=== PATIENT | female | born 1985 | race Caucasian/White ===

== ENCOUNTER 2016-07-09 18:09 | Emergency (ER) | payer MEDICARE, MEDICAID ==
[~2016-07-09] VITALS: Ht 165.1 cm; Wt 96.8 kg
[~2016-07-09 18:09] MED LIST: CLOMID; METFORMIN PO; NEOM10DR11 RIGHT_EAR; SYNTHROID
[2016-07-09 18:25] VITALS: BP 134/78; PULSE 81; RESP 16; O2SAT 97
[2016-07-09 19:05] LABS: BASOPHILS % (AUTO) 0.1 % (0-3); EOSINOPHILS % (AUTO) 0.7 % (0-5); MONOCYTES % (AUTO) 5.3 % (4-12); Mean Corpuscular Hemoglobin 27.7 pg (27.0-35.0); NEUTROPHILS % (AUTO) 77.9 % (40-74); Platelet Count 248 bil/L (150-400)
[2016-07-09 19:25] LABS: Magnesium 1.7 mg/dL (1.6-2.6)
--- NOTE | 2016-07-09 21:01 | ED.REPORT ---
HPI-Abd Pain F Under 40 Date of Service Jul 09, 2016 ED Provider: Dr. Maher 31 y/o female with a hx of diabetes mellitus and polycystic ovarian syndrome presents to the ED complaining of sudden RLQ abdominal pain, onset 6 hours ago while she was eating. Her pain started diffuse, localizing to her RLQ. She reports the pain was sudden and rates it 5/10 in severity. Pt denies nausea, vomiting, fever, chills, dysuria, abnormal vaginal discharge or change in appetite. Pt has a yeast infection a couple of weeks ago, now resolved. She is not currently . Nursing Notes Stated Complaint: ABDOMINAL PAIN Chief Complaint: Female Abdominal Pain Nursing Notes Reviewed: Yes Allergies: Coded Allergies: Penicillins (Verified Allergy, Unknown, 07/09/16) Scheduled Neomy Sulf/Colist Sul/Hc/Thonz (Cortisporin-Tc Ear Susp) 10 Ml Drops.susp 5 GTTS RIGHT_EAR QID Scheduled PRN Hydrocodone-Acetaminophen 5-325 mg (Hydrocodone-Acetaminophen 5-325 mg) 1 Each Tablet 1 TABLET PO Q6H PRN PRN For Pain Miscellaneous Medications ([Synthroid]) ([Metformin ]) PO ([Clomid]) General Time Seen by MD: 21:00 Chief Complaint Abdominal pain Hx Obtained From: Patient Arrived By: Walk-in Sudden in Onset?: Yes Onset Occurred: 5 - 8 hours ago Symptom Duration: Since onset Progression since Onset: Constant Location: : RLQ Quality: Painful Severity: Current: Moderate Severity: Maximum: Moderate Recent Healthcare: No recent doctor visit Similar Sx Previous: No Past Medical History Past Medical History Diabetes Mellitus Polycystic ovarian syndrome Past Surgical History Back surgery Smoking History Never Smoker Social History Alcohol Use: Denies alcohol use Drug Use: Denies drug use Other Social History: Good social support, Local resident Ambulatory Status Independent Review of Systems No change in appetite. Constitutional: Denies: Chills, Fever GI: Reports: Abdominal pain, Denies: Nausea, Vomiting Female: Denies: Dysuria, , Vaginal discharge Complete sys rev & neg: except as marked. Physical Exam Initial Vital Signs Vital Signs (First) Date Time Temp Pulse Resp B/P Pulse Ox O2 Delivery O2 Flow Rate FiO2 07/09/16 18:25 36.6 81 16 134/78 97 Room Air Initial VS: Reviewed, Vital signs normal Head / Eyes: Atraumatic, Normocephalic, PERRL ENT: Mucous membranes moist, Conjunctiva normal, No scleral icterus Neck: Supple, Non-tender, Full range of motion Skin: Warm, Dry, No cyanosis Neurologic: Alert, Oriented, Nonfocal Psychiatric: Mood/affect normal, Behavior normal, Normal thought content General/Constitutional: Awake, Alert, Cooperative, Not toxic appearing Respiratory / Chest: Atraumatic, Breath sounds NL, Breath sounds = bilat Cardiovascular: Heart rate NL, Regular rhythm, Heart sounds NL Abdomen: Atraumatic, No rebound Tenderness/Guarding/Rebound: Positive: Guarding involuntary, Tender RLQ... Back: Non-tender, No CVA tenderness Upper Extremity / MS: No swelling, No edema Lower Extremity / Pelvis / MS: No swelling, No edema Interpretation & Diagnostics Lab Results Interpretation Result Diagram: 07/09/169 07/09/16 1849 Test 07/09/16 18:49 07/09/16 21:30 White Blood Count 11.7th/mm3 (3.8-10.1) Red Blood Count 4.73mil/mm3 (3.90-5.20) Hemoglobin 13.1g/dL (12.0-15.6) Hematocrit 40.2% (35.0-46.0) Mean Corpuscular Volume 85.0fL (81-100) Mean Corpuscular Hemoglobin 27.7pg (27.0-35.0) Mean Corpuscular Hemoglobin Concent 32.6% (32.0-37.0) Red Cell Distribution Width 13.9% (12.3-15.4) Platelet Count 248bil/L (150-400) Neutrophils (%) (Auto) 77.9% (40-74) Lymphocytes (%) (Auto) 15.8% (14-46) Monocytes (%) (Auto) 5.3% (4-12) Eosinophils (%) (Auto) 0.7% (0-5) Basophils (%) (Auto) 0.1% (0-3) Sodium Level 137mEq/L (134-144) Potassium Level 4.0mEq/L (3.5-5.2) Chloride Level 98mEq/L (97-108) Carbon Dioxide Level 25mmol/L (18-29) Blood Urea Nitrogen 11mg/dL (6-20) Creatinine 0.56mg/dL (0.57-1.00) Estimat Glomerular Filtration Rate 181mL/min (>59) Glucose Level 299mg/dL (60-99) Calcium Level 9.7mg/dL (8.5-10.1) Magnesium Level 1.7mg/dL (1.6-2.6) Total Bilirubin 0.4mg/dL (0.0-1.2) Aspartate Amino Transf (AST/SGOT) 67U/L (0-50) Alanine Aminotransferase (ALT/SGPT) 149U/L (0-32) Alkaline Phosphatase 69U/L (25-150) Total Protein 7.5g/dL (6.4-8.4) Albumin 4.6g/dL (3.4-5.0) Lipase 57U/L (13-60) HCG Beta Subunit 0.500mIU/mL Hold Mike Top Tube Received (Received) Hold Urine Received (Received) CT Abd / Pelvis Interpretation Conclusion: A few prominent mesenteric lymph nodes nonspecific can be seen with mesenteric adenitis in the proper clinical setting. No evidence of acute appendicitis. Giselle Peña M.D. 07/09/16 - 22:52 Study type: Abdominal CT IV contrast Interpretation / Wet Read by: Interpret - Radiologist Re-Eval/Medical Decision Med Decision/Clinical Course The patient presents with right lower quadrant pain and peritoneal signs. CT rules out appendicitis however she does have mesenteric adenitis which would explain her symptoms. Source of Hx: Old records Re-Evaluation/Progress : Time of Eval: 23:40 Re-Evaluation/Progress Note: Pt rechecked. Discussed lab and imaging results and diagnosis. Informed the pt of the plan to discharge. Pt understands and agrees with plan. F/U instructions and RTER warning given. All questions addressed. Counseled Regarding: Diagnosis, Lab results, Need for follow-up, When/why to return to ED Discharge & Departure Primary Impression: Mesenteric adenitis Disposition: Home Discharge Condition All VS Reviewed: Yes Condition: Stable Additional Instructions: You don't have any signs of appendicitis. You do have an infection which will resolve with time. You may have pain for several days or week. Return to the emergency department in case of high fever, increasing pain, difficulty urinating or any new or concerning symptoms. Referrals: Jhonatan Hung MD (PCP) Scribe Attestation Portions of this note were transcribed by Dariusz Lucero and Adrienne Ricardo I, personally performed the history, physical exam and medical decision-making;I reviewed and confirmed the accuracy of the information in the transcribed note. Signed by Dariusz Lucero and Adrienne Ricardo, Scribe. 07/10/16 0536 copies to: Jhonatan Hung MD, Jena M MD Jul 09, 2016 21:01 Dariusz Lucero Jul 09, 2016 21:16 Adrienne Ricardo Jul 10, 2016 02:35 Tamera Maher MD Jul 09, 2016 21:01 Dariusz Lucero Jul 09, 2016 21:16
[2016-07-09] MEDS ORDERED: 0.9% Sodium Chloride 1,000 ML IV ONE (21:20)
[2016-07-09] MEDS ORDERED: Insulin Human REGular-Omnicell 100 Unit/mL SUBQ ONE (21:20)
[2016-07-09 22:04] VITALS: BP 147/90; PULSE 88; RESP 20; O2SAT 98
[2016-07-09] MEDS ORDERED: HYDR-4003 PO (23:44)
[2016-07-09] MEDS ORDERED: HYDROcodone-APAP 5-325 mg Tablet PO ONE (23:45)
[2016-07-09 23:58] VITALS: BP 138/87; PULSE 80; RESP 16; O2SAT 98
--- NOTE | 2016-07-10 09:14 | DRSVH ---
PROCEDURE: CT ABDOMEN AND PELVIS WITH CONTRAST ([id number]) INDICATIONS: RLQ pain TECHNIQUE: After the administration of intravenous contrast, 5 mm thick sections acquired from the diaphragm to the symphysis. 5 mm coronal and sagittal reformats were acquired. For radiation dose reduction, the following was used: automated exposure control, adjustment of mA and/or kV according to patient siz e. COMPARISON: None. FINDINGS: Image quality: Excellent. ABDOMEN: Lung bases: Lung bases are clear. Heart size is normal. Solid organs: Liver and spleen are normal in size and enhancement. Mild hepatic steatosis is present . Gallbladder is unremarkable. Biliary system is non dilated. Pancreas enhances normally. No adren al nodules. Kidneys demonstrate normal size and enhancement, without hydronephrosis. There is an il l-defined focus of low-attenuation within the anterior right lower renal pole measuring approximately 5 mm. Peritoneum and bowel: Bowel loops demonstrate normal wall thickness and caliber. No free fluid or a ir. The appendix is unremarkable. It is noted to be along the inferior aspect of the liver. No infla mmatory change. Nodes and vessels: No retroperitoneal or mesenteric adenopathy by size criteria. Several scattered m esenteric lymph nodes are present the largest measuring approximately 4 mm. Aorta and inferior vena c mg are normal in size. Miscellaneous: No ventral hernias. PELVIS: Genitourinary: Bladder wall thickness is normal. Miscellaneous: No inguinal hernias or adenopathy. Bones: No suspicious bony lesions. No vertebral body compression fractures. IMPRESSION: 1. Unremarkable appendix. Several scattered sub-centimeter mesenteric lymph nodes are present, possib ly sales account representative of mesenteric adenitis. 2. 5 mm ill-defined focus of low-attenuation within the right kidney. This is likely sales account representative o f cyst, although it is too small to definitively characterize. No priors are available for comparison . Dictated by: Juanita Valdez M.D. on 07/10/2016 at 9:07 Approved by: Juanita Valdez M.D. on 07/10/2016 at 9:12
== END 2016-07-09 23:59 | disposition home or self-care (01) ==
LOC: SED 18:09
DX: I88.0 Nonspecific mesenteric lymphadenitis (principal); E11.9 Type 2 diabetes mellitus without complications; E28.2 Polycystic ovarian syndrome; Z79.84 Long term (current) use of oral hypoglycemic drugs; Z88.0 Allergy status to penicillin
CPT/HCPCS: 36415; 74177; 80053; 81025; 82948; 83690; 83735; 84702; 85025; 96360; 99285; J1815; J7030; Q9967

== ENCOUNTER 2016-11-18 21:14 | Emergency (ER) | payer MEDICARE, MEDICAID ==
[~2016-11-18] VITALS: Ht 165.1 cm; Wt 105.0 kg
[~2016-11-18 21:14] MED LIST changes: +HYDR-4003 PO
[2016-11-18 21:23] VITALS: BP 127/70; PULSE 80; RESP 20; O2SAT 97
[2016-11-18] MEDS ORDERED: Ondansetron 2 mg/mL 2 mL Inj IVPUSH ONE (21:35)
[2016-11-18] MEDS ORDERED: HYDROmorphone 0.5 mg/0.5 mL iSecure Syringe IVPUSH PRN (21:35)
[2016-11-18 21:41] LABS: BASOPHILS % (AUTO) 0.1 % (0-3); EOSINOPHILS % (AUTO) 0.9 % (0-5); MONOCYTES % (AUTO) 5.3 % (4-12); Mean Corpuscular Hemoglobin 28.6 pg (27.0-35.0); Mean Corpuscular Volume 84.8 fL (81-100); NEUTROPHILS % (AUTO) 60.7 % (40-74); Platelet Count 267 bil/L (150-400)
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
[2016-11-18 22:08] LABS: Magnesium 1.6 mg/dL (1.6-2.6)
[2016-11-19] MEDS ORDERED: _HYDROcodone/APAP 5-325 mg Tablet PO PRN
[2016-11-19 00:44] VITALS: BP 131/78; PULSE 77; RESP 16; O2SAT 99
--- NOTE | 2016-11-19 09:20 | DRSVH ---
PROCEDURE: US ABDOMEN ([id number]) INDICATIONS: pelvic us, pain h/o PCOS TECHNIQUE: Real-time scanning was performed of the abdominal and retroperitoneal organs, with image documentatio n. COMPARISON: None. FINDINGS: Liver: Liver is normal in size and increased in echogenicity. Gallbladder: There multiple echogenic shadowing gallstones in the gallbladder. Gallbladder wall thic kness is at the upper limits of normal measuring 2-3 mm. No pericholecystic fluid or reported sonogr aphic Wyman's sign. Biliary ducts: Intrahepatic bile ducts are non-dilated. Extrahepatic bile duct caliber measures 5-6 mm. Normal is 6-7 mm or less in diameter, or 10 mm or less post-cholecystectomy. Pancreas: Visualized portions of the pancreas are sonographically normal. Spleen: Spleen is normal in size and homogeneous in echotexture. Kidneys: Right kidney measures 9.7 cm long; left kidney measures 14 cm long. No hydronephrosis.. Aorta: Visualized aorta is normal in caliber at less than 3 cm. Iliacs: Proximal common iliac arteries are normal in caliber at less than 2.5 cm. IVC: Intrahepatic inferior vena cava is patent. Miscellaneous: No free abdominal fluid. IMPRESSION: 1. Cholelithiasis without definite evidence of cholecystitis. 2. Increased hepatic echogenicity compatible with steatosis. Dictated by: Jacob Wetzel M.D. on 11/19/2016 at 9:17 Approved by: Jacob Wetzel M.D. on 11/19/2016 at 9:19
== END 2016-11-19 00:45 | disposition home or self-care (01) ==
LOC: EDBD 21:14 → SED 21:14
DX: K80.20 Calculus of gallbladder without cholecystitis without obstruction (principal); E11.9 Type 2 diabetes mellitus without complications; E03.9 Hypothyroidism, unspecified; Z79.84 Long term (current) use of oral hypoglycemic drugs; Z88.0 Allergy status to penicillin
CPT/HCPCS: 36415; 76700; 80053; 83690; 83735; 84703; 85025; 96361; 96374; 96375; 99285; J1170; J2405